=== PATIENT | female | born 1960 | race Caucasian/White ===

== ENCOUNTER 2016-10-15 13:00 | Day surgery (SDC) | payer OTHER ==
[~2016-10-15] VITALS: Ht 168.3 cm; Wt 73.0 kg
--- NOTE | 2016-10-15 07:53 | PCM.HPANE ---
Patient Data Surgeon Admitting Provider: Attending Provider:Denny Culp MD Primary Care Physician:Gerardo Rios ND Other Provider:Fina Dumont Anesthesia Reason for Visit Rectal Bleeding Ht/WT & BMI Body Mass Index Allergies Coded Allergies: Penicillins (Verified Allergy, Severe, Rash,Itching,SOB, 10/14/16) peanut (Verified Allergy, Severe, Rash, 08/07/15) adhesive (Verified Allergy, Intermediate, Rash, 10/14/16) hydrocodone (Verified Adverse Reaction, Severe, 10/14/16) "makes my head weird " Past Anesthesia History Anesthesia History: Positive for:: Abnormal Airway, Anesthesia Reactions (WOKE UP DURING PROCEDURE), Denies:: Difficult Intubation, Fam Anesthesia Reaction, Fam Malignant Hypertherm, Malignant Hyperthermia Diabetes History Hx Diabetes?: No 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) Medications Reported Medications [Marijuana, Smokes] No Conflict Check 10/15/16 Cyclobenzaprine 7.5 Mg Tablet7.5 Mg PO TID PRN Spasm Ref 0 10/14/16 oxyCODONE-Acetaminophen 5-325 mg 1 Each Tablet1 Tab PO Q6H PRN For Pain Ref 0 10/14/16 Aripiprazole (Abilify)20 Mg [id number] Mg PO DAILY 30 Days Ref 0 07/11/14 Lorazepam 1 Mg Tablet1 Mg PO HS PRN For Insomnia Ref 0 07/08/14 Discontinued Reported Medications Methocarbamol (Robaxin)100 Mg/1 Ml [id number] Mg IJ QID 11/14/15 Oxycodone HCl/Acetaminophen 5-325 (Percocet 5-325)1 Each Tablet2 Each PO BID PRN For Pain Ref 0 07/11/14 Cyclobenzaprine 10 Mg Qrqnoc60 Mg PO TID PRN muscle spasms 07/11/14 History History of ENT Problems?: No HEENT History: Positive for:: Abnormal Airway Dysphagia Denies:: Difficult Intubation Hearing Problem Denture Type: Partial- Upper Partial- Lower Teeth Condition: Within Normal Limits Hx of Heart Problems?: Yes Cardiovascular History: Positive for:: Chest Pain Hypertension Denies:: AICD Atrial Fibrillation Cardiac Surgery Congestive Heart Failure Edema Heart Murmur Irregular Heartbeat Pacemaker Thrombophlebitis Valvular Heart Disease Hx of Respiratory Problem?: Yes Respiratory History: Positive for:: COPD Denies:: Asthma Chest Surgery Cough Dyspnea Emphysema Hemoptysis Pneumonia Tuberculosis Hx Neurologic Problems?: Yes Neurological History: Positive for:: Headaches (migraines) Denies:: Alzheimer's Disease CVA Dementia Dizziness Parkinson's Disease Seizures Hx of GI Problems?: Yes Hx of Problems?: No Female Hx: Denies:: Currently (HYSTERECTOMY) Endometriosis Pelvic Inflammatory Problems with Breasts? Hx Musculoskeletal Problems?: Yes Musculoskeletal History: Denies:: Back Injury Joint Replacement Musculoskeletal Trauma Hx of Psycho/Social Problems?: Yes Psycho Social History: Positive for:: Anxiety Bipolar Disorder Hx Depression Denies:: Suicide Attempt Hx Surgeries?: Yes (HYSTERECTOMY, SHOULDER, GALLBLADDER, ADENOIDS, TONSILS, BOWEL OBSTR, BOWEL ) Hx Any Other Health Problems?: Yes Other History: Positive for:: Hospitalization Denies:: Cancer Endocrine Disease Thyroid Disease History Blood Transfusions: Positive for:: Blood Transfusions Denies:: Blood Transfuse Reaction Hx Diabetes: No Hx Alcohol Use: No (rarely)Hx Substance Use: No (Uses marijuana for pain control) Smoking Status: Current Every Day Smoker Heavy Tobacco Smoker Have You Smoked inLast 12 mo: Yes Stop/Bang Risk Assessment Category Category 1A: Patient has history of documented sleep apnea, and HAS NOT received any narcotic, sedative or anesthesia administration during this stay. Category 1B: Patient has history of documented sleep apnea, and HAS received any narcotic , sedative or anesthesia administration during this stay Category 2: Patient has SUSPECTED Obstructive Sleep Apnea, and HAS received any narcotic , sedative or anesthesia administration during this stay. Category 3: Patient has SUSPECTED Obstructive Sleep Apnea and HAS NOT received narcotic, sedative or anesthesia administration during this stay. Category 4: Outpatient in Procedural Areas with known sleep apnea or who screen positive for High Risk via the STOP/BANG questionnaire. Exam Exam General Appearance: Alert, Oriented X3, Cooperative HEENT/AIRWAY: MP 2, Neck Movement (F), Mouth Opening (WNL - pOOR dENTITION) Lungs: Clear to Auscultation, Normal Air Movement Heart: Exam Unremarkable Plan Impression Patient chart reviewed, patient interviewed and anesthestic plan with risks, benefits, and alternatives discussed, and informed consent obtained. ASA Physical Status: ASA2 Mod Systemic Disease Anesthetic Plan: GA Bene/Risks/Altern/Consents: Yes HP Complete Prior to Induction: Yes Young Bliss MD October 15, 2016 07:53
[~2016-10-15 13:00] MED LIST: ARIP20TA8 PO; CYCL7.5T27 PO; LORA1TAB PO; OXYC1TAB24 PO; [UNRECOGNIZED DRUG - CODE] IJ
[2016-10-15] MEDS ORDERED: fentaNYL-PF 50 mCg/mL 2 mL Inj ONE (13:01)
[2016-10-15] MEDS ORDERED: Propofol 10,000 mCg/mL 20 mL Inj ONE (13:01)
[2016-10-15 13:22] VITALS: BP 126/90; PULSE 83; RESP 14; O2SAT 98
[2016-10-15] MEDS ORDERED: [UNRECOGNIZED DRUG - REMARK] (13:23)
[2016-10-15] MEDS ORDERED: Lactated Ringer's 1,000 ML IV SCH (14:09)
[2016-10-15] MEDS ORDERED: Ondansetron 2 mg/mL 2 mL Inj IVPUSH PRN (14:10)
[2016-10-15] MEDS ORDERED: MetoCLOpramide 5 mg/mL 2 mL Inj IVPUSH PRN (14:10)
[2016-10-15] MEDS: Lactated Ringer's 1,000 ML IV ONE ×2 (14:13→15:03)
[2016-10-15 15:08] VITALS: BP 115/69; PULSE 78; RESP 14; O2SAT 100
--- NOTE | 2016-10-15 15:09 | PCM.ANEP1 ---
Post Anesthesia Phase 1 PACU Phase 1 Assessment Vital Signs Vital Signs Date Time Temp Pulse Resp B/P Pulse Ox O2 Delivery O2 Flow Rate FiO2 10/15/16 13:22 36.9 83 14 126/90 98 Room Air Anesthetic Administered: GA Level of Alertness: Awake, talking HI's with Equal Strength: Yes Pain: No Nausea or Vomiting: No Cardiovascular Function and Hy: Yes Oxygen Delivery: Room Air Lungs: Normal Air Movement Complications: No Follow up Care: No Young Bliss MD October 15, 2016 15:09
[2016-10-15 15:20] VITALS: BP 134/97; PULSE 78; RESP 14
[2016-10-15 15:29] VITALS: BP 121/78; PULSE 71; RESP 14; O2SAT 98
--- NOTE | 2016-10-15 16:47 | ENDO ---
[address] [address] ENDOSCOPY PROCEDURE PATIENT: VIK VILLASEÑOR : 1960 MR#: [id number] ADMIT: 10/15/2016 JOB ID: [id number] PRIMARY PROVIDER: Gerardo Rios MD. PROCEDURE: Colonoscopy with hot snare polypectomy, cold forceps polypectomy. INDICATIONS: A 56-year-old female with a history of colon polyps and regular red blood per rectum. She has a tendency towards constipation. EQUIPMENT: [id number]. SEDATION: Monitored anesthesia as provided by Dr. Des Bliss. COMPLICATIONS: None identified. BOWEL PREPARATION: Fair at best. Several areas demonstrated a moderate amount of retained liquid/stool debris requiring copious amounts of irrigation and suction. PROCEDURE INFORMATION: After the risks and benefits were explained, written and verbal informed consent was obtained, the patient was brought into the endoscopy suite and placed into the left lateral decubitus position. Sedation was achieved using the above stated medications with the addition of oxygen via nasal cannula. A digital rectal examination revealed grade 4 and grade 3 internal and external nonbleeding, nonthrombosed hemorrhoids with an element of rectal prolapse. For the most part, I was able to digitally placed the hemorrhoidal cushions back up inside the anal canal prior to the scope insertion. After the scope was inserted we advanced to cecum with difficulty. The patient had a long redundant bowel requiring several patient position changes and applications of pressure. We arrived at cecum and then slowly withdrew to carefully examine the mucosa for any defects or lesions. Multiple direct views were made through the dentate line for exclusion of pathology. The colon was decompressed, the scope removed from the patient who tolerated the procedure well. FINDINGS: Prep conditions as above. Throughout the colon there were three diminutive polyps removed with cold forceps and two slightly larger polyps removed with hot snare. These were all submitted together as "colon polyps." The patient had some scattered diverticula in the left colon. Moderate internal hemorrhoids were again noted on direct views. ENDOSCOPIC DIAGNOSES: 1. Colon polyps. 2. Rectal prolapse. 3. Grade 3 and grade 4 nonthrombosed nonbleeding hemorrhoids. RECOMMENDATIONS: 1. Await histopathology. 2. Repeat colonoscopy with an extra day of prep in three years with anesthesia. 3. Continue bowel regimen to facilitate soft regular stools. 4. If prolapse continues to be problematic then the patient may need surgical intervention.
--- NOTE | 2016-10-17 11:36 | PATH ---
SURGICAL PATHOLOGY Attending Physician:Darren Persaud CASE STATUS: Signed Out PATIENT NAME: VIK VILLASEÑOR PID: [id number] : 1960 DATE COLLECTED:10/15/2016 00:00 SPECIMEN: Colon, Biopsy CLINICAL HISTORY: 1. COLON POLYPS FINAL DIAGNOSIS: 1.COLON POLYPS: TUBULAR ADENOMAS, MULTIPLE FRAGMENTS. HYPERPLASTIC POLYP, ONE. ICD10 CODE D12.6 K63.5 GROSS DESCRIPTION: The specimen is received in one formalin filled container labeled with the patient's name, sublabeled "colon polyps" and consists of 5 portions of tissue which aggregate to 0.7 x 0.7 x 0.5 CM. The specimen is entirely submitted in one cassette. 10/16/2016 [facility] MICRO DESCRIPTION: See diagnosis. ICD-9 CODES: CPT CODES: 1: 27345 Electronically Signed Out Anamika West MD [facility] Pathology [facility] [address], [place] [address] Technical component performed at [facility], [facility] [address], [place], [address]
== END 2016-10-15 23:59 | disposition home or self-care (01) ==
LOC: END 13:00
PROVIDERS: ATTEND Internal Medicine Gastroenterology
DX: D12.6 Benign neoplasm of colon, unspecified (principal); K57.30 Diverticulosis of large intestine without perforation or abscess without bleeding; K64.2 Third degree hemorrhoids; K64.3 Fourth degree hemorrhoids; K62.3 Rectal prolapse; Z86.010 Personal history of colon polyps; K59.00 Constipation, unspecified; M54.16 Radiculopathy, lumbar region; M79.7 Fibromyalgia
CPT/HCPCS: 45380; 45385; J2250; J3010; J7120